=== PATIENT | female | born 1990 | race Hispanic/Latino ===

== ENCOUNTER 2023-05-20 16:04 | Outpatient (CLI) | payer BC, SELFPAY ==
[2023-05-20 16:46] VITALS: BP 138/76; PULSE 66
[2023-05-20 16:47] LABS: Basophils Percent Auto 0.2 % (0.2-1.2); Eosinophils Absolute Auto 0.1 K/mm3 (0-0.3); Eosinophils Percent Auto 0.6 % (0-4.4); Hematocrit 38.9 % (37.0-47.0); Hemoglobin 12.7 g/dL (12.0-15.0); Immature Granulocyte Absolute 0.02 K/mm3 (0.00-0.031); Immature Granulocyte Percent A 0.2 % (0-0.5); Lymphocytes Absolute Auto 2.86 K/mm3 (0.9-3.2); Lymphocytes Percent Auto 24.5 % (18.3-44.2); Mean Corpuscular HGB Conc 32.6 g/dl (32-36); Mean Corpuscular Hemoglobin 28.6 pg (26-34); Mean Corpuscular Volume 87.6 fl (80-100); Monocytes Absolute Auto 0.9 K/mm3 (0.1-0.6); Neutrophils Absolute Auto 7.8 K/mm3 (1.3-6.7); Neutrophils Percent Auto 66.5 % (45.5-73.1); Platelet Count Result 214 k/mm3 (150-375); Red Blood Count 4.44 M/mm3 (4.2-5.4); Red Cell Distribution Width 13.5 % (11.5-14.5); White Blood Count 11.7 K/mm3 (4.5-10.0)
[2023-05-20 16:52] LABS: Creatinine Urine 57.7 mg/dL; Total Protein Urine Random 131 mg/dL; Ur Ttl Prot Creatinine Ratio 2.27 mg/mg (0-0.20)
[2023-05-20 16:57] LABS: Alanine Aminotransferase 21 U/L (6-35); Albumin Level 3.4 g/dL (3.5-5.1); Alkaline Phosphatase 129 U/L (38-126); Anion Gap 8 mmol/L (8-16); Aspartate Amino Transferase 22 U/L (14-36); Bilirubin,Total 0.3 mg/dL (0.2-1.3); Blood Urea Nitrogen 14 mg/dL (7-17); Calcium 8.9 mg/dL (8.4-10.2); Carbon Dioxide 19 mmol/L (22-30); Chloride 107 mmol/L (98-107); Estimated Glomerular Filt Rate > 60; Glucose 77 mg/dL (65-110); Potassium 4.2 mmol/L (3.4-5.0); Sodium 134 mmol/L (137-145); Uric Acid 7.8 mg/dL (2.5-7.5)
[2023-05-20 17:01] VITALS: BP 150/73; PULSE 64
--- NOTE | 2023-05-20 17:14 | PC.NURSE ---
Dr. Corrales updated on pt labs and vital signs. Order received for 24 hour urine and bile acid level to be drawn when urine is completed. pt can be discharged once NST is reactive.
[2023-05-20 17:16] VITALS: BP 148/75; PULSE 63
[2023-05-20 17:20] LABS: Appearance Urine Cloudy (Clear); Bacteria Urine None Seen /hpf; Bilirubin Urine Negative (Negative); Blood Urine Negative (Negative); Color Urine Yellow (Yellow); Glucose Urine UA Negative (Negative); Ketones Urine Negative (Negative); Leukocyte Esterase Ur 1+ LEU/UL (NEGATIVE); Need Manual Microscopic Reviewed; Nitrate Urine Negative (Negative); Protein Urine 2+ mg/dL (Negative); RBC Urine 0-2 /hpf (0-2); Specific Grav Ur 1.014 (1.001-1.035); Squamous Epithelial Cell Urine Moderate /hpf (Few); Urobilinogen Urine 0.2 mg/dL (<2.0); WBC Urine 0-5 /hpf (0-3)
[2023-05-20 17:22] LABS: Add Urine Microscopic? YES
[2023-05-20 17:31] VITALS: BP 150/77; PULSE 63
[2023-05-20 18:02] VITALS: BP 138/76; PULSE 66
--- NOTE | 2023-05-20 18:14 | PC.NURSE ---
Dr. Corrales aware of pt blood pressures. okay with pt going home and completing 24 hour urine and returning.
== END 2023-05-20 18:08 | disposition home or self-care (01) ==
LOC: ANHOBOP 16:18 → ANHLDR 16:28
PROVIDERS: Visit Provider Obstetrics & Gynecology
DX: O13.9 Gestational [pregnancy-induced] hypertension without significant proteinuria, unspecified trimester (principal); Z3A.00 Weeks of gestation of pregnancy not specified
CPT/HCPCS: 36415; 59025; 80053; 81001; 82570; 84156; 84550; 85025; 87086; 99199

== ENCOUNTER 2023-05-21 18:01 | Outpatient (CLI) | payer BC, SELFPAY ==
[2023-05-21 18:34] LABS: Collection Time Urine 24 HOURS
[2023-05-21 18:42] LABS: Creatinine Urine 117.1 mg/dL; Total Protein Urine Random 67 mg/dL
[2023-05-21 20:56] LABS: Total Protein Urine 24 Hr 871 mg/24hr (28-141); Total Volume 24 Hour Urine 1300 ml
[2023-05-21 20:58] LABS: Creatinine Clearance Urine 136.5 ml/min (75-125); Patient Weight 268 Lbs
[2023-05-28 16:59] LABS: Chenodeoxycholic Acid 1.2 umol/L (< OR = 3.9); Cholic Acid 0.5 umol/L (< OR = 2.8); Deoxycholic Acid 0.5 umol/L (< OR = 2.3); Total Bile Acids 2.2 umol/L (< OR = 8.3)
== END 2023-05-21 18:02 | disposition home or self-care (01) ==
LOC: ANHOBOP 18:05
PROVIDERS: Visit Provider Obstetrics & Gynecology
DX: O13.9 Gestational [pregnancy-induced] hypertension without significant proteinuria, unspecified trimester (principal); Z3A.00 Weeks of gestation of pregnancy not specified
CPT/HCPCS: 36415; 81050; 82542; 82575; 84156

== ENCOUNTER 2023-05-22 13:59 | Inpatient (IN) | payer BC, SELFPAY ==
[2023-05-22] VITALS (25 sets, daily range): BP systolic 102–164; BP diastolic 65–111; PULSE 68–90; TEMP 36.8; BMI 44.0
[2023-05-22 14:36] LABS: Basophils Percent Auto 0.1 % (0.2-1.2); Eosinophils Absolute Auto 0.1 K/mm3 (0-0.3); Eosinophils Percent Auto 0.5 % (0-4.4); Hematocrit 38.2 % (37.0-47.0); Hemoglobin 12.5 g/dL (12.0-15.0); Immature Granulocyte Absolute 0.05 K/mm3 (0.00-0.031); Immature Granulocyte Percent A 0.4 % (0-0.5); Lymphocytes Absolute Auto 2.68 K/mm3 (0.9-3.2); Lymphocytes Percent Auto 23.4 % (18.3-44.2); Mean Corpuscular HGB Conc 32.7 g/dl (32-36); Mean Corpuscular Hemoglobin 28.4 pg (26-34); Mean Corpuscular Volume 86.8 fl (80-100); Mean Platelet Volume 12.1 fl (7.4-10.4); Monocytes Absolute Auto 0.9 K/mm3 (0.1-0.6); Monocytes Percent Auto 8.2 % (2.6-8.5); Neutrophils Absolute Auto 7.7 K/mm3 (1.3-6.7); Neutrophils Percent Auto 67.4 % (45.5-73.1); Platelet Count Result 195 k/mm3 (150-375); Red Cell Distribution Width 13.4 % (11.5-14.5); White Blood Count 11.5 K/mm3 (4.5-10.0)
[2023-05-22 14:41] LABS: Appearance Urine Clear (Clear); Bacteria Urine None Seen /hpf; Bilirubin Urine Negative (Negative); Blood Urine Negative (Negative); Color Urine Yellow (Yellow); Glucose Urine UA Negative (Negative); Ketones Urine Negative (Negative); Leukocyte Esterase Ur Trace LEU/UL (NEGATIVE); Nitrate Urine Negative (Negative); Non Pathogenic Casts 0-2; Protein Urine 2+ mg/dL (Negative); RBC Urine 0-2 /hpf (0-2); Specific Grav Ur 1.007 (1.001-1.035); Squamous Epithelial Cell Urine Few /hpf (Few); Urobilinogen Urine 0.2 mg/dL (<2.0); WBC Urine 0-5 /hpf (0-3); pH Urine 6.5 (5.0-9.0)
[2023-05-22 14:42] LABS: Creatinine Urine 24.3 mg/dL; Total Protein Urine Random 109 mg/dL; Ur Ttl Prot Creatinine Ratio 4.49 mg/mg (0-0.20)
[2023-05-22 14:44] LABS: Alanine Aminotransferase 19 U/L (6-35); Albumin Level 3.2 g/dL (3.5-5.1); Alkaline Phosphatase 122 U/L (38-126); Anion Gap 4 mmol/L (8-16); Aspartate Amino Transferase 19 U/L (14-36); Bilirubin,Total 0.2 mg/dL (0.2-1.3); Blood Urea Nitrogen 16 mg/dL (7-17); Calcium 9.2 mg/dL (8.4-10.2); Carbon Dioxide 19 mmol/L (22-30); Chloride 107 mmol/L (98-107); Estimated Glomerular Filt Rate > 60; Glucose 75 mg/dL (65-110); Potassium 3.9 mmol/L (3.4-5.0); Sodium 130 mmol/L (137-145); Uric Acid 7.5 mg/dL (2.5-7.5)
[2023-05-22 14:48] LABS: Add Urine Microscopic? YES
--- NOTE | 2023-05-22 15:55 | LDADM ---
This patient, Fabiola Jewell, was admitted to Labor/Delivery/Recovery 105 on 05/22/23 at 13:59. Plans for labor, pain management and were discussed with patient. Patient/family oriented to hospital policies and general routines including ID bracelet, bed and alarms, visiting hours, pain management, procedures, bathroom and other care routines, personal items, smoking policy, room service/diet and guest tray routines, security routines, and visiting hours. Patient/Family are encouraged to report perceived risks to care and to ask questions if they do not understand what they are told or what they should do. See OBIX for further documentation.
[2023-05-22 16:07] LABS: Basophils Percent Auto 0.2 % (0.2-1.2); Eosinophils Absolute Auto 0.1 K/mm3 (0-0.3); Eosinophils Percent Auto 0.4 % (0-4.4); Hematocrit 38.7 % (37.0-47.0); Hemoglobin 12.7 g/dL (12.0-15.0); Immature Granulocyte Absolute 0.04 K/mm3 (0.00-0.031); Immature Granulocyte Percent A 0.3 % (0-0.5); Lymphocytes Absolute Auto 2.84 K/mm3 (0.9-3.2); Lymphocytes Percent Auto 24.4 % (18.3-44.2); Mean Corpuscular HGB Conc 32.8 g/dl (32-36); Mean Corpuscular Hemoglobin 28.7 pg (26-34); Mean Corpuscular Volume 87.6 fl (80-100); Mean Platelet Volume 12.9 fl (7.4-10.4); Monocytes Absolute Auto 0.9 K/mm3 (0.1-0.6); Monocytes Percent Auto 7.7 % (2.6-8.5); Neutrophils Absolute Auto 7.8 K/mm3 (1.3-6.7); Platelet Count Result 194 k/mm3 (150-375); Red Blood Count 4.42 M/mm3 (4.2-5.4); Red Cell Distribution Width 13.6 % (11.5-14.5); White Blood Count 11.7 K/mm3 (4.5-10.0)
[2023-05-22] MEDS: DINOPROSTONE 10 MG VAG INSERT VAGINAL (16:28)
--- NOTE | 2023-05-22 16:45 | PM.IMHP ---
H&P: HPI History of Present Illness Date/Time: 05/22/23 16:45 Chief Complaint: Swelling Narrative: 32 y/o at 37 weeks here with swelling of face and feet. She had a 24 hour urine protein level which just returned at 871 mg / 24 hours. No headache or visual field change. Has been on ASA 81 mg daily. Just transferred care to [place] 2 weeks ago after moving here from [place]. GBS collected 2 days ago, results not available. Good movement. Ultrasound exam in office 2 days ago 6#12 oz, vertex, with normal ANGELA. Review of Systems Review of Systems: All systems reviewed & are unremarkable except as noted in HPI and below PMFSH Past Medical History Medical History Obesity affecting in third trimester Surgical History Surgical History History of D&C Hx of cholecystectomy Social History Social History Smoking status: Former smoker Tobacco type: cigarettes Second hand tobacco smoke exposure: No Lack of Transportation: No Lack of Food: Never True Current Housing: I Have Housing Concerned About Future Housing: No Difficulty Paying Gas/Electric Bills: No Difficulty Paying for Meds: No Currently Unemployed: No Education: Don't Know Difficulty w/ Childcare or Family Care: No Spiritual care concerns: No Meds Home Medications and Allergies Allergies Allergy/AdvReac Type Severity Reaction Status Date / Time No Known Allergies Allergy Verified 05/22/23 15:42 Vital Signs Vital Signs - 24 hr 05/22/23 14:31 05/22/23 14:46 05/22/23 15:11 Pulse Rate 70 73 74 Blood Pressure 159/92 H 164/90 H 154/87 H Oxygen Delivery 05/22/23 15:16 05/22/23 15:31 05/22/23 15:46 Pulse Rate 84 72 79 Blood Pressure 156/87 H 151/80 H 136/88 Oxygen Delivery 05/22/23 16:01 05/22/23 16:16 05/22/23 16:31 Pulse Rate 77 72 68 Blood Pressure 151/94 H 152/96 H 148/87 H Oxygen Delivery 05/22/23 15:52 Pulse Rate Blood Pressure Oxygen Delivery Room Air Exam Const: Orientation/consciousness: patient oriented x3 Other: Well-developed, well-nourished female in no acute distress. Neck: Thyroid: thyroid normal Lymphatic: no lymphadenopathy noted (in neck, axilla or inguinal nodes) Resp: Effort & Inspection: normal respiratory effort Auscultation: clear to auscultation bilaterally Cardio: Rate: regular rate Rhythm: regular rhythm Heart sounds: S1 normal heart sound present and S2 normal heart sound present GI: Other: ABD: Soft, nontender, gravid, nondistended. No guarding or rebound tenderness. No hepatosplenomegaly. FHR 140 reactive. TOCO: rare contractions. : General: Yes no CVA tenderness Other: Cervix /50/-3 per RN. Back/Spine/Pelvis: Back: no CVA tenderness Skin: General skin exam: normal color and no rashes or lesions noted Neuro: General: patient oriented x3 Extrem: Other: Extremities: nontender with 1+ pitting edema bilaterally. Psych: Mental Status: mental status grossly normal Affect: normal affect H&P: Results Labs Labs: Short CBC 05/22/23 05/22/23 Range/Units 14:21 16:01 WBC 11.5 H 11.7 H (4.5-10.0) K/mm3 Hgb 12.5 12.7 (12.0-15.0) g/dL Hct 38.2 38.7 (37.0-47.0) % Plt Count 195 194 (150-375) k/mm3 BMP 05/22/23 14:21 Sodium 130 L Potassium 3.9 Chloride 107 Carbon Dioxide 19 L BUN 16 Creatinine 0.60 L Glucose 75 Calcium 9.2 Liver Function 05/22/23 Range/Units 14:21 Total Bilirubin 0.2 (0.2-1.3) mg/dL AST 19 (14-36) U/L ALT 19 (6-35) U/L Alkaline Phosphatase 122 (38-126) U/L Albumin 3.2 L (3.5-5.1) g/dL Urine 05/22/23 Range/Units 14:21 Urine Color Yellow (Yellow) Urine Appearance Clear (Clear) Urine pH 6.5 (5.0-9.0) Ur Specific [place] 1.007 (1.001-1.035
[2023-05-22] MEDS: LACTATED RINGERS 1,000 ML 125 ML IV CONT (17:00)
[2023-05-22] MEDS: AMPICILLIN 2 GM/NS 100 ML 2 GM/100 ML BAG IVPB (17:00)
[2023-05-22] MEDS: NIFEdipine 10 MG CAPSULE PO (17:11)
[2023-05-22 18:47] LABS: HIV 1/2 Ab P24 Ag Result Negative (Negative)
[2023-05-22] MEDS: AMPICILLIN 1 GM/NS 50 ML 1 GM/50 ML BAG IVPB (22:30)
[2023-05-23] VITALS (227 sets, daily range): BP systolic 103–192; BP diastolic 53–175; PULSE 58–119; RESP 18; TEMP 36.6–37.2; O2SAT 94–100
[2023-05-23] MEDS: AMPICILLIN 1 GM/NS 50 ML 1 GM/50 ML BAG IVPB ×4 (02:30→15:18)
[2023-05-23] MEDS: LACTATED RINGERS 1,000 ML 125 ML IV CONT ×2 (05:06→10:37)
[2023-05-23] MEDS: fentaNYL CITRATE INJ (*CRX) 100 MCG/2 ML VIAL IV PUSH (05:11)
--- NOTE | 2023-05-23 06:07 | WPDANESEPP ---
Anes - Eval Pre Procedure Procedure: labor epidural Date/Time: 05/23/23 06:07 Surgeon: zoey Preop Diagnosis: pain during labor Pre Op Diagnosis: pih eval Patient Data Age: 32 Gender: F Height: 1.65 m Weight: 120 kg Last Vital Signs Temp 36.6 C 05/23/23 00:00 Pulse 81 05/23/23 05:56 BP 154/89 H 05/23/23 05:56 Pulse Ox 99 05/23/23 06:06 O2 Del Method Room Air 05/22/23 15:52 Allergies Allergy/AdvReac Type Severity Reaction Status Date / Time No Known Allergies Allergy Verified 05/22/23 17:20 Home Medications Medication Instructions Recorded Confirmed Type aspirin 81 mg tablet 1 mg PO DAILY 05/22/23 05/22/23 History Laboratory Tests 05/22/23 05/22/23 05/22/23 14:21 16:01 17:50 WBC 11.5 H K/mm3 11.7 H K/mm3 (4.5-10.0) (4.5-10.0) RBC 4.40 M/mm3 4.42 M/mm3 (4.2-5.4) (4.2-5.4) Hgb 12.5 g/dL 12.7 g/dL (12.0-15.0) (12.0-15.0) Hct 38.2 % 38.7 % (37.0-47.0) (37.0-47.0) MCV 86.8 fl 87.6 fl (80-100) (80-100) MCH 28.4 pg 28.7 pg (26-34) (26-34) MCHC 32.7 g/dl 32.8 g/dl (32-36) (32-36) RDW 13.4 % 13.6 % (11.5-14.5) (11.5-14.5) Plt Count 195 k/mm3 194 k/mm3 (150-375) (150-375) MPV 12.1 H fl 12.9 H fl (7.4-10.4) (7.4-10.4) Immature Gran % (Auto) 0.4 % 0.3 % (0-0.5) (0-0.5) Neut % (Auto) 67.4 % 67.0 % (45.5-73.1) (45.5-73.1) Lymph % (Auto) 23.4 % 24.4 % (18.3-44.2) (18.3-44.2) [place] % (Auto) 8.2 % 7.7 % (2.6-8.5) (2.6-8.5) Eos % (Auto) 0.5 % 0.4 % (0-4.4) (0-4.4) Baso % (Auto) 0.1 L % 0.2 % (0.2-1.2) (0.2-1.2) Lymph # (Auto) 2.68 K/mm3 2.84 K/mm3 (0.9-3.2) (0.9-3.2) [place] # (Auto) 0.9 H K/mm3 0.9 H K/mm3 (0.1-0.6) (0.1-0.6) Eos # (Auto) 0.1 K/mm3 0.1 K/mm3 (0-0.3) (0-0.3) Baso # (Auto) 0.0 K/mm3 0.0 K/mm3 (0.0-0.1) (0.0-0.1) Abs Immat Gran (auto) 0.05 H K/mm3 0.04 H K/mm3 (0.00-0.031) (0.00-0.031) Absolute Neuts (auto) 7.7 H K/mm3 7.8 H K/mm3 (1.3-6.7) (1.3-6.7) Absolute Nucleated RBC 0.0 K/mm3 0.0 K/mm3 (0.0-0.012) (0.0-0.012) Nucleated RBC % 0.0 % 0.0 % (0.0-0.2) (0.0-0.2) Sodium 130 L mmol/L (137-145) Potassium 3.9 mmol/L (3.4-5.0) Chloride 107 mmol/L (98-107) Carbon Dioxide 19 L mmol/L (22-30) Anion Gap 4 L mmol/L (8-16) BUN 16 mg/dL (7-17) Creatinine 0.60 L mg/dL (0.7-1.0) Estim Creat Clear Calc Not Reportable Estimated GFR > 60 (59 - ) Glucose 75 mg/dL (65-110) Uric Acid 7.5 mg/dL (2.5-7.5) Calcium 9.2 mg/dL (8.4-10.2) Total Bilirubin 0.2 mg/dL (0.2-1.3) AST 19 U/L (14-36) ALT 19 U/L (6-35) Alkaline Phosphatase 122 U/L (38-126) Total Protein 6.0 L g/dL (6.3-8.2) Albumin 3.2 L g/dL (3.5-5.1) Urine Color Yellow (Yellow) Urine Appearance Clear (Clear) Urine pH 6.5 (5.0-9.0) Ur Specific [place] 1.007 (1.001-1.035) Urine Protein 2+ H mg/dL (Negative) Urine Glucose (UA) Negative mg/dL (Negative) Urine Ketones Negative mg/dL (Negative) Ur Blood (Man) Negative (Negative) Urine Nitrate Negative (Negative) Urine Bilirubin Negative (Negative) Urine Urobilinogen 0.2 mg/dL (<2.0) Ur Leukocyte Esterase Trace H HAWK/UL (NEGATIVE) Urine RBC 0-2 /hpf (0-2) Urine WBC 0-5 /hpf (0-3) Ur Squamous Epith Cells Few /hpf (Few) Urine Bacteria None seen /hpf Urine Casts 0-2 U Random Total Protein 109 mg/dL Urine Creatinine 24.3 mg/dL Protein/Creat Ratio 2 4.49 H mg/mg (0-0.20) RPR Pendi
[2023-05-23] MEDS: OXYTOCIN 30 UNITS/NS 500 ML 30 UNITS/500 ML BAG 6 UNITS IV CONT (07:41)
[2023-05-23 09:15] LABS: Rapid Plasma Reagin Non-Reactive (NonReactive)
--- NOTE | 2023-05-23 12:01 | PM.OBPNLAB ---
Pain Control Date/time seen: 05/23/23 9549 Comments: Comfortable with epidural. Cervidil out. Oxytocin has not yet been started. Pelvic Exam Dilation (cm): 4 Effacement (%): 50 station: -2 Comments: AROM with clear fluid. IUPC placed. Contractions Contraction frequency: 4 Contraction pattern: Irregular Status status: Category l Assessment and Plan Comments: A: IUP at 37 weeks with preeclampsia; bp stable. S/p Cervidil. Plan: Oxytocin. Monitor bp.
--- NOTE | 2023-05-23 12:04 | PM.OBPNLAB ---
Pain Control Date/time seen: 05/23/23 12:04 Comments: Comfortable. Pelvic Exam Dilation (cm): 5 Effacement (%): 90 station: -1 Contractions Contraction frequency: 4 Contraction pattern: Regular Status status: Category l Assessment and Plan Pitocin rate (mU/min): 6 Comments: Continue labor.
[2023-05-23] MEDS: ONDANSETRON INJ 4 MG/2 ML VIAL IV PUSH (14:02)
--- NOTE | 2023-05-23 14:57 | PC.NURSE ---
1228 - Introductions were made and mother shared how she would like to feed her baby with exclusive . Encouraged mother to place infant [id number] until the first feeding if infant is stable and to wait on the weight to help stabilize, reduce stress, and improve latching by allowing time to explore parent's chest using instincts. Education was shared on how to protect her milk supply with latching infant and/or using hand expression to remove milk if infant doesn't latch in the first hour, then finger feed colostrum to the infant to preserve breast focus. Demonstration given on how to hand express using tool. We discussed mothers questions, concerns and typical late behaviors. Resources provided with educational trifold for bonding and feeding infant. Mother voiced understanding of information, planning to meet again on the PP floor after delivery and to call if there is a request for assistance.
[2023-05-23] MEDS: miSOPROStol 200 MCG TABLET 1000 MCG RECTAL (16:49)
--- NOTE | 2023-05-23 16:57 | PM.OBPRVD ---
OB - Delivery Note Procedure Delivery date: 05/23/23 Procedure: Induction of labor with Induction method: Per Cervidil Protocol Delivery augmentation: Rupture of Membranes and Pitocin Delivery monitor: External FHT, External Uterine and Internal Uterine Route of delivery: Laceration Description: Periurethral and Perineal - 2nd Degree Delivery repair: vicryl (3-0) Specimen: Yes (cord blood, placenta) Quantitative Blood Loss (ml): 570 Anesthesia type: Epidural Disposition: PACU Complications: None Narrative: 32 y/o at 37 1/7 weeks gestation who presented to the hospital for induction of labor because of preeclampsia. Cervidil was placed overnight. She received ampicillin for GBS unknown status. The following morning the Cervidil was withdrawn and oxytocin was administered intravenously. Amniotomy was performed with return of clear fluid. She received an epidural for pain control. Her labor progressed and her cervix dilated completely. She pushed with good effort and delivered the infant's head to the perineum, followed by the body. The nose and mouth were bulb suctioned. After a delay, the cord was clamped and cut. The was handed off the field. Cord blood was collected. The placenta delivered spontaneously and was grossly normal in appearance. The usual 3 vessel cord was noted. A second degree midline perineal laceration was sustained. This was reapproximated using 3 0 Vicryl in the usual layered fashion. A right-sided periurethral laceration was reapproximated with a single figure of eight suture of the same material. Uterine atony was addressed with uterine massage, IV oxytocin, and 1000 mcg Cytotec [place]. Excellent hemostasis resulted as did excellent reapproximation of the normal anatomy. Needle and instrument counts were correct. The patient was taken to recovery room in stable condition. The went to the nursery in stable condition. I was present and scrubbed for the entire delivery. Baby Date of : 05/23/23 Time of : 16:30 Weeks of gestation at delivery: 37 gender: Female Weight (pounds): 6 Weight (ounces): 3 presentation: vertex position: Left Occiput Anterior Placenta delivery description: Spontaneous and Normal Configuration Cord Vessel Description: 3 Vessels and Delayed Cord Clamping score one minute: 9 score five minutes: 9
--- NOTE | 2023-05-23 17:02 | PM.OBDSVD ---
DS: Admitting Diagnosis Discharge Date 05/25/23 Admitting Diagnosis IUP at 37 weeks Preeclampsia DS: Discharge Diagnosis Discharge Diagnosis (1) Term : Code(s): Z34.90 - Encounter for supervision of normal , unspecified, unspecified trimester Status: Acute (2) Preeclampsia: Qualifiers: Trimester: third trimester Qualified Code(s): O14.93 - Unspecified pre-eclampsia, third trimester Code(s): O14.90 - Unspecified pre-eclampsia, unspecified trimester Status: Acute OB - DS: Summary OB Procedures : PIH Mgmt OB Procedures Intrapartum: Spontaneous Vag Delivery and GBS prophylaxis OB Procedures: : None Time Spent with Patient Time attestation: Total time spent providing and/or coordinating discharge services: DS: Data Data Completed and Pending Labs on day of discharge: Labs from last 24 hours 05/22/23 05/22/23 17:50 16:01 RPR Non-reactive HIV 1&2 Ab/P24 Ag 4thGn Negative Discharge Plan Discharge Attending physician on discharge: Maximilian Corrales Discharging Clinician: Maximilian Corrales Patient Disposition: Home, Self-Care Activity: pelvic rest Diet: regular Discharge Instructions: Call or return if temperature above 100.4? F, increased abdominal pain, increased vaginal bleeding or any new problems. Stand Alone Forms: General Discharge Information Follow-up/Referrals: Maximilian Corrales MD [Physician] - 6 Weeks Discharge Medications: New ibuprofen 600 mg tablet 600 mg PO Q6H PRN (Reason: cramps) Qty: 30 0RF ferrous sulfate 325 mg (65 mg iron) tablet 325 mg PO DAILY Qty: 30 0RF hydrocodone-acetaminophen 5-325 mg tablet 1 tablet PO Q4H PRN (Reason: pain) Qty: 20 0RF Discontinued Adult Low Dose Aspirin 81 mg Tablet 1 mg PO DAILY Date of admission: 05/22/23 13:59 Primary Care Provider: PHYSICIAN,ENVIRONMENTAL PROFESSIONAL Admitting Provider: Maximilian Corrales Attending physician on admission: Maximilian Corrales Condition: Stable
[2023-05-23] MEDS: OXYTOCIN 30 UNITS/NS 500 ML 30 UNITS/500 ML BAG 125 UNITS IV CONT ×2 (17:07→21:45)
[2023-05-23] MEDS: CARBOPROST TROMETHAMINE 250 MCG/ML AMPUL IM (17:19)
[2023-05-23 18:04] LABS: Hematocrit 34.8 % (37.0-47.0); Hemoglobin 11.4 g/dL (12.0-15.0)
[2023-05-23] MEDS: LACTATED RINGERS 1,000 ML 250 ML IV CONT (18:08)
[2023-05-23 18:17] LABS: Alanine Aminotransferase 17 U/L (6-35); Albumin Level 1.9 g/dL (3.5-5.1); Alkaline Phosphatase 89 U/L (38-126); Anion Gap 1 mmol/L (8-16); Aspartate Amino Transferase 20 U/L (14-36); Bilirubin,Total 0.4 mg/dL (0.2-1.3); Blood Urea Nitrogen 8 mg/dL (7-17); Calcium 6.1 mg/dL (8.4-10.2); Carbon Dioxide 17 mmol/L (22-30); Chloride 116 mmol/L (98-107); Estimated CRCL calculation 176 ml/min; Estimated Glomerular Filt Rate > 60; Glucose 65 mg/dL (65-110); Sodium 134 mmol/L (137-145)
[2023-05-23 18:22] LABS: Partial Thromboplastin Time 24.7 SECONDS (22.3-36.8); Prothrombin Time 13.4 Seconds (11.1-14.7)
[2023-05-23 18:23] LABS: Fibrinogen 353 mg/dl (215-510)
[2023-05-23 18:24] LABS: D Dimer 1.34 ug/mL (<0.48)
[2023-05-23] MEDS: IBUPROFEN 600 MG TABLET PO (21:31)
[2023-05-23] MEDS: LOPERAMIDE HCL 2 MG CAPSULE 4 MG PO (21:44)
--- NOTE | 2023-05-23 22:00 | PC.NURSE ---
Patient transferred to post room # 285 via( W/C ). Support person present. Oriented to unit, room, information board, rooming in, admission packet and security measures. Patient verbalizes understanding.
--- NOTE | 2023-05-23 23:30 | PC.NURSE ---
Pt had a hemorrhage. She came to the floor with the BRIE device in place. Labor Rn connected pt to the proper setting of suction. MD at bedside at 2330. MD disconnected suction, but left the device in place. . returned at 0015 to take Brie device out. Pt. tolerated procedure well.
--- NOTE | 2023-05-24 00:33 | PM.OBPNVD ---
OB - PN: Subj Subjective Date/time seen: 05/24/23 00:33 Narrative: Has some cramping and some back pain. OB - PN: Obj Data Labs 05/23/23 18:00 05/23/23 17:57 Labs: Laboratory Results - last 24 hr 05/22/23 05/23/23 05/23/23 16:01 17:57 18:00 Hgb 11.4 L Hct 34.8 L PT 13.4 INR 1.0 APTT 24.7 Fibrinogen 353 D-Dimer 1.34 H Sodium 134 L Potassium 3.0 L Chloride 116 H Carbon Dioxide 17 L Anion Gap 1 L BUN 8 D Creatinine 0.50 L Estim Creat Clear Calc 176 Estimated GFR > 60 Glucose 65 Calcium 6.1 L Total Bilirubin 0.4 AST 20 ALT 17 Alkaline Phosphatase 89 Total Protein 4.0 L Albumin 1.9 L RPR Non-reactive OB - PN A/P Plan Comments: A: PPD#1, doing well. hemorrhage, stable. Preeclampsia, clinically stable without antihypertensives. Magnesium sulfate was not started in the period due to uterine atony / hemorrhage. P: Routine care. Exam Psych: Other: AVSS ABD soft, nontender, fundus firm EXT nontender The Brie tubing was disconnected and the vaginal balloon deflated. After 30 minutes, hemostasis was still excellent and the uterine fundus was still firm and below the umbilicus. The Brie system was removed from the vagina and discarded.
[2023-05-24] MEDS: IBUPROFEN 600 MG TABLET PO ×3 (02:20→17:50)
[2023-05-24] MEDS: HYDROcodone/acetaminophen (*CRX) 5-325 MG TABLET 1 TAB PO ×3 (02:20→22:24)
[2023-05-24 05:56] VITALS: BP 98/57; PULSE 62; RESP 18; TEMP 36.7; O2SAT 98
[2023-05-24 06:17] LABS: Hematocrit 27.5 % (37.0-47.0)
[2023-05-24 07:45] VITALS: BP 128/85; PULSE 74; RESP 16; TEMP 37.1; O2SAT 97
--- NOTE | 2023-05-24 08:00 | PC.NURSE ---
PT introductions made and plan of care discussed per post , pain management, breast feeding, daily care activities, PIH symptoms, signs of low iron and pending discharge to home Friday 05/25. PT sole recipient of such instructions and no barriers to learning identified at this time. PT received such instructions per one to one discussion, mom baby care guide and demonstrations this shift. PT verbalized understanding of such care.
--- NOTE | 2023-05-24 08:25 | WPDANLDPN2 ---
Anes-Prog Note L&D Date/Time: 05/24/23 08:25 Neuro status: Neuro function grossly intact. Vital Signs: Last Vital Signs Temp 36.7 C 05/24/23 05:56 Pulse 62 05/24/23 05:56 Resp 18 05/24/23 05:56 BP 98/57 L 05/24/23 05:56 Pulse Ox 98 05/24/23 05:56 O2 Del Method Room Air 05/23/23 23:23 Pain score (VAS): 0 I/O: Intake & Output 05/23/23 05/24/23 05/24/23 23:59 07:59 15:59 Intake Total 1000 725 Output Total 1608 250 Balance -608 475 Patient feedback: Patient satisfied with anesthetic care.
[2023-05-24] MEDS: ACETAMINOPHEN 325 MG TABLET 650 MG PO (11:22)
[2023-05-24] MEDS: MULTIVIT/MIN/PREN/FOL AC/IRON TABLET 1 TAB PO (11:23)
[2023-05-24] MEDS: DOCUSATE SODIUM 100 MG CAPSULE PO ×2 (11:24→17:50)
[2023-05-24] MEDS: POLYSACCHARIDE IRON COMPLEX 150 MG CAPSULE PO ×2 (11:26→17:51)
[2023-05-24] MEDS: LANOLIN (LANSINOH) 7.5 GM CREAM 1 APPLIC TOPICAL (11:29)
[2023-05-24 11:30] VITALS: PULSE 74; RESP 16; O2SAT 97
[2023-05-24] MEDS: LOPERAMIDE HCL 2 MG CAPSULE (12:00)
[2023-05-24 12:10] VITALS: BP 120/81; PULSE 73; RESP 18; TEMP 37; O2SAT 98
--- NOTE | 2023-05-24 14:20 | PC.NURSE ---
[id number] Purposefully rounded to assess needs. Primary RN initiated the feeding plan with mother prior to meeting mother this morning. Mother states she fed the bottle at 0935, then breastfed at 1045 for 10 minutes, then breastfed for 15 minutes on the second breast. Mother states there was no pain with and she visualized rocking jaw motion with swallowing of the jaw dropping. Mother states she has a lot of colostrum. Mother voiced understanding of calling for assistance for a assessment, difficulty waking infant to breastfeed or pain with the latch. RN's name written on the communication board.
--- NOTE | 2023-05-24 15:54 | PC.NURSE ---
[id number] Purposefully rounded to assess for needs. Mother verbalizes she is able to independently latch with appropriate positioning/alignment. She denies any nipple discomfort and is responsively . Infant is currently meeting outcomes for weight, output, jaundice and feeding frequencies of 8-12 times in 24 hours. Mother demonstrated her efforts with infant latched to the right breast using laid-back cradle positioning, then detached. Reviewed positioning and ear, shoulder, hip alignment, supporting the breast to facilitate a deep latch, asymmetrical latch (off-center), leading with the chin with a big, open, wide gape and body close to mother. Infant latched optimally to the left breast in football position. Education given to mother of how to visualize suck/swallow ratios and listen for drinking at the breast. Infant was able to maintain latch without discomfort to mother. Mother is encouraged to call for assistance if her infant doesn?t latch, there is discomfort with latching or she doesn't observe swallowing. Mother voiced understanding of information shared and the mom reminded of the mom/baby guide for an additional resource.
--- NOTE | 2023-05-24 16:04 | PC.NURSE ---
Addendum entered by Meka Chacko RN 05/24/23 16:14: Pumped colostrum is stored in patient room in an oral syringe. Demonstrated to parent how to allow to suck on a clean finger with pad of finger to the roof of 's mouth, then reward sucking efforts with small amounts of colostrum syringe fed to infant in the side of the cheek. Parents were encouraged to call for assistance with feeding infant or if they have any concerns or questions. Plan of care is the feeding plan increasing volume with age and needs protecting the milk supply and attempting to latch . Original Note: [id number] Called for a consult. Mother is attempting to latch , however, is sleepy in the position. Mother led conversation with her experience with feeding baby so far. Mother works well with her with encouragement. Encouraged understanding the benefits of skin to skin. Reviewed working with infant, supporting breast and how to protect the nipples with an optimal deep latch, good positioning, and good hand washing. Once infant was placed upright [id number] demonstrated feeding cues. Reviewed positioning and alignment, supporting breast, off-centered (asymmetrical latch) and leading with the chin with big, open, wide gape. Infant was brought to the breast in football, then cross cradle to attempt to achieve an optimal latch. Infant is unable to latch to mother's breast effectively at this time. Infant demonstrates great effort, yet on closer evaluation the nipple is seen in the corner of the infants mouth. There is a mismatch of mouth to nipple at this time. Mother was educated on what to look for to know if infant is latched well, swallowing transferring milk. Nipple care reviewed with optimal latch, good positioning and using clean hands when feeding her infant and touching her breast. Demonstrated to mother paced bottle feeding to encourage breast focus for the future. Breast pump was in the room provided earlier due to ineffective per report. Instructions given on cleaning, care, usage, that there should be no pain, pumping schedule for milk production, collection, and storage of human milk. Patient was assessed for correct placement, flange size (24mm), to pump for comfort and nipple stretching/stimulation for adequate milk production every 3 hours (8 times in 24 hours) 1-2 times at night at the minimum and mother was encouraged to pump more often if she desired as it may encouraged her milk supply after a large delivery blood loss. Resources used to facilitate learning were used from the visual handout, tool, mom and baby guide for outpatient service and community resources. Mother voiced understanding of the education shared, to call for assistance if the does not latch or if there is discomfort with . Reported to the primary RN.
--- NOTE | 2023-05-24 16:11 | PM.OBPNVD ---
OB - PN: Subj Subjective Date/time seen: 05/24/23 16:11 Narrative: Pain OK. OB - PN: Obj Data Labs 05/24/23 05:48 05/23/23 17:57 Labs: Laboratory Results - last 24 hr 05/23/23 05/23/23 05/24/23 17:57 18:00 05:48 Hgb 11.4 L 9.0 L Hct 34.8 L 27.5 L PT 13.4 INR 1.0 APTT 24.7 Fibrinogen 353 D-Dimer 1.34 H Sodium 134 L Potassium 3.0 L Chloride 116 H Carbon Dioxide 17 L Anion Gap 1 L BUN 8 D Creatinine 0.50 L Estim Creat Clear Calc 176 Estimated GFR > 60 Glucose 65 Calcium 6.1 L Total Bilirubin 0.4 AST 20 ALT 17 Alkaline Phosphatase 89 Total Protein 4.0 L Albumin 1.9 L OB - PN A/P Plan Comments: A: PPD#1, doing well. Preeclampsia, resolving. PPH, resolved. P: Routine care. Exam Psych: Other: AVSS ABD soft, nontender, fundus firm EXT nontender
[2023-05-24 20:00] VITALS: BP 115/73; PULSE 72; RESP 18; TEMP 36.7; O2SAT 98
[2023-05-25] MEDS: IBUPROFEN 600 MG TABLET PO (04:41)
[2023-05-25 08:30] VITALS: BP 128/72; PULSE 63; RESP 16; TEMP 36.8; O2SAT 100
[2023-05-25] MEDS: DOCUSATE SODIUM 100 MG CAPSULE PO (08:30)
[2023-05-25] MEDS: HYDROcodone/acetaminophen (*CRX) 5-325 MG TABLET 1 TAB PO (08:30)
[2023-05-25] MEDS: POLYSACCHARIDE IRON COMPLEX 150 MG CAPSULE PO (08:30)
[2023-05-25] MEDS: MULTIVIT/MIN/PREN/FOL AC/IRON TABLET 1 TAB PO (08:30)
--- NOTE | 2023-05-25 09:23 | PM.OBPNVD ---
OB - PN: Subj Subjective Date/time seen: 05/25/23 09:23 Narrative: Pain OK. Would like to go home. OB - PN: Obj Data Labs 05/24/23 05:48 05/23/23 17:57 OB - PN A/P Plan Comments: A: PPD#2, doing well. Hemorrhage, resolved. Preeclampsia, resolving. P: Home to f/u 6 weeks. Exam Psych: Other: AVSS ABD soft, nontender, fundus firm EXT nontender
[2023-05-25] MEDS: WITCH HAZEL 40 PADS 1 PAD TOPICAL (09:30)
[2023-05-27 09:34] VITALS: BP 131/93; PULSE 92; RESP 18; TEMP 37; O2SAT 92
== END 2023-05-25 13:43 | disposition home or self-care (01) | DRG 807 ==
LOC: ANHOBOP 14:06 → ANHLDR 14:06 → ANHOBOP 15:22 → ANHLDR 15:22 → ANHOB2 05-23 22:08
PROVIDERS: Admitting Provider Obstetrics & Gynecology; Visit Provider Obstetrics & Gynecology
DX: O14.94 Unspecified pre-eclampsia, complicating childbirth (principal); Z37.0 Single live birth; Z3A.37 37 weeks gestation of pregnancy; O70.1 Second degree perineal laceration during delivery; O71.82 Other specified trauma to perineum and vulva; O99.214 Obesity complicating childbirth; E66.9 Obesity, unspecified; O72.1 Other immediate postpartum hemorrhage
CPT/HCPCS: 36415; 80053; 81001; 82570; 84156; 84550; 85014; 85018; 85025; 85380; 85384; 85610; 85730; 86592; 86703; 86850; 86900; 86901; 87086; 88307; A9270; G0432; J0290; J2405; J2590; J2795; J3010; J7120

== ENCOUNTER 2023-11-16 16:39 | Emergency (ER) | payer BC, SELFPAY ==
--- NOTE | ~2023-11-16 | XR_ITS ---
PA, oblique, and lateral views of the right thumb CLINICAL HISTORY: Injury FINDINGS: No acute fracture or dislocation seen. Joint spaces are preserved. Soft tissues are unremar kable. IMPRESSION: No acute abnormality evident. Reviewed, dictated and finalized at location . [employer]
[2023-11-16 16:46] VITALS: BP 138/87; PULSE 90; RESP 20; TEMP 36.3; O2SAT 100
--- NOTE | 2023-11-16 16:55 | ED.UPPEXIN ---
HPI - Extremity Injury (Upper) General Chief Complaint: Extremity Injury, Upper Stated Complaint: rt thumb inj Time Seen by Provider: 11/16/23 16:51 Source: patient and RN notes reviewed Mode of arrival: ambulatory Limitations: no limitations History of Present Illness HPI narrative: Patient presents today complaining of a right thumb injury. Approximately 5-10 minutes prior to arrival, patient slammed her right thumb in the trunk of her car. Small laceration to the finger. Denies numbness or tingling. Currently rates her pain 4/10. She is up-to-date on her tetanus vaccine. Related Data Home Medications Medication Instructions Recorded Confirmed sertraline 100 mg tablet 100 mg PO DAILY 11/16/23 11/16/23 Allergies Allergy/AdvReac Type Severity Reaction Status Date / Time No Known Allergies Allergy Verified 11/16/23 16:55 Review of Systems Review of Systems: CONSTITUTIONAL: Denies body aches, fever, chills, or sweats. EYES: Denies visual changes, redness, or discharge. ENT: Denies rhinorrhea, congestion, sore throat, or otalgia. CARDIOVASCULAR: Denies chest pain, palpitations, or edema. RESPIRATORY: Denies cough or dyspnea. GASTROINTESTINAL: Denies abdominal pain, nausea, vomiting, or diarrhea. GENITOURINARY: Denies dysuria or hematuria. SKIN: Denies rash, itching MUSCULOSKELETAL: Denies back pain, or myalgia.+ right thumb injury NEUROLOGIC: Denies headache, numbness, tingling, or weakness. PSYCH: Denies depression or anxiety. COUNTS INCLUDE 234 BEDS AT THE [facility] Past Medical History Medical History IUP (intrauterine ), incidental Obesity affecting in third trimester Surgical History Surgical History History of D&C Hx of cholecystectomy Social History Social History Smoking status: Former smoker Tobacco type: cigarettes Second hand tobacco smoke exposure: No Lack of Transportation: No Lack of Food: Never True Current Housing: I Have Housing Concerned About Future Housing: No Difficulty Paying Gas/Electric Bills: No Difficulty Paying for Meds: No Currently Unemployed: No Education: Don't Know Difficulty w/ Childcare or Family Care: No Spiritual care concerns: No Comments At time of signature, I have reviewed and agree with nursing past medical, surgical, social and family history unless otherwise noted. Please see nursing chart for further information. There is no relevant family history pertinent to the presenting complaint Exam Narrative: GENERAL: Well-appearing, well-nourished, and in no acute distress. HEAD: Normocephalic, atraumatic. EYES: EOMI. No redness or drainage. Conjunctivae normal. ENT: Mucous membranes pink and moist. NECK: Normal AROM. CHEST: No respiratory distress. EXTREMITIES: Tenderness to the distal phalax and IPJ. No edema or ecchymosis noted. 1cm L shaped superficial flap laceration adjacent to the fingernail. Nail unaffected. Distal sensation intact. Capillary refill normal. Full range of motion of the finger against resistance. No tenderness to the proximal phalanx. SKIN: Warm, dry, no rash. Capillary refill normal. Normal skin turgor. NEURO: No focal deficits. Alert and oriented x3. Gait steady. PSYCH: Normal affect. No signs of depression or anxiety. Course Course Level of Care: Express Care Visit Vital Signs Vital signs: Vital Signs Temperature 97.4 F L 11/16/23 16:46 Pulse Rate 90 11/16/23 16:46 Respiratory Rate 20 11/16/23 16:46 Blood Pressure 138/87 11/16/23 16:46 Pulse Oximetry 100 11/16/23 16:46 Oxygen Delivery Room Air 11/16/23 16:46 Temperature 97.4 F L 11/16/23 16:46 Pulse Rate 90 11/16/23 16:46 Respiratory Rate 20 11/16/23 16:46 Blood Pressure 138/87 11/16/23 16:46 Pulse Oximetry 100 11/16/23 16
== END 2023-11-16 17:21 | disposition home or self-care (01) ==
PROVIDERS: Emergency Provider Nurse Practitioner
DX: S61.011A Laceration without foreign body of right thumb without damage to nail, initial encounter (principal); X58.XXXA Exposure to other specified factors, initial encounter; S60.011A Contusion of right thumb without damage to nail, initial encounter; Z87.891 Personal history of nicotine dependence
CPT/HCPCS: 73140; 99213; G0463

== ENCOUNTER 2024-05-22 10:28 | Emergency (ER) | payer BC, SELFPAY ==
--- NOTE | ~2024-05-22 | XR_ITS ---
EXAMINATION: XR tibia fibula LT 2V DATE: 05/22/2024 11:09 INDICATION: Left lower leg injury and pain. TECHNIQUE: 2 views of left tibia and fibula were obtained. COMPARISON: None. FINDINGS: Bone alignment is normal. No fracture. Joint spaces are normal. IMPRESSION: 1. No fracture. Reviewed, dictated and finalized at location A. IMPRESSION: 1. No fracture.
--- NOTE | 2024-05-22 10:33 | ED.LOWEXIN ---
HPI - Extremity Injury (Lower) General Chief Complaint: Extremity Problem,Nontraumatic Stated Complaint: LT ho injury Time Seen by Provider: 05/22/24 10:32 Source: patient Mode of arrival: ambulatory Limitations: no limitations History of Present Illness HPI Narrative: Fabiola is a 33-year-old female presents today with complaints of left ho pain. She states about 2 weeks ago that she picked her child up out of a play pen and hit her left ho on the play pen. She has been able to bear weight on the affected leg without difficulty however certain movements make the pain worse. She states there is no specific movement that makes the pain worse. She has been taking Tylenol and ibuprofen for the pain. She ultimately presents today due to complaints of persistent pain and is worried she has a fracture. Related Data Home Medications Medication Instructions Recorded Confirmed sertraline 100 mg tablet 100 mg PO DAILY 11/16/23 05/22/24 Allergies Allergy/AdvReac Type Severity Reaction Status Date / Time No Known Allergies Allergy Verified 05/22/24 10:46 Review of Systems Review of Systems: Pertinent positives per HPI. Patient denies any fever, chills, rash, headache, visual changes, dizziness, cough, runny nose, sore throat, shortness of breath, chest pain, palpitations, nausea, vomiting, diarrhea, constipation, abdominal pain, or any urinary issues. [facility] Past Medical History Medical History IUP (intrauterine ), incidental Obesity affecting in third trimester Surgical History Surgical History History of D&C Hx of cholecystectomy Social History Social History Smoking status: Former smoker Tobacco type: cigarettes Second hand tobacco smoke exposure: No Lack of Transportation: No Lack of Food: Never True Current Housing: I Have Housing Concerned About Future Housing: No Difficulty Paying Gas/Electric Bills: No Difficulty Paying for Meds: No Currently Unemployed: No Education: Don't Know Difficulty w/ Childcare or Family Care: No Spiritual care concerns: No Comments At the time of my signature, I reviewed and agree with the nursing past medical, surgical, social, and family history. There is no relevant family history pertinent to the patient complaint. Exam Narrative: General: Well-developed, well nourished, in no apparent distress Integumentary: Skin warm, dry, and intact without lesions. Musculoskeletal: No deformity, left anterior ho tender to palpation, grossly normal range of motion, muscle strength strong and equal, peripheral pulse strong, no edema, no cyanosis, normal gait and station. Course Course Emergency Course: Portions of this record may have been created with voice recognition software. Level of Care: Express Care Visit Vital Signs Vital signs: Vital Signs Temperature 36.6 C 05/22/24 10:46 Pulse Rate 70 05/22/24 10:46 Respiratory Rate 18 05/22/24 10:46 Blood Pressure 121/71 05/22/24 10:46 Pulse Oximetry 99 05/22/24 10:46 Oxygen Delivery Room Air 05/22/24 10:46 Temperature 36.6 C 05/22/24 10:46 Pulse Rate 70 05/22/24 10:46 Respiratory Rate 18 05/22/24 10:46 Blood Pressure 121/71 05/22/24 10:46 Pulse Oximetry 99 05/22/24 10:46 Oxygen Delivery Room Air 05/22/24 10:46 Vital signs reviewed MDM - Extremity Injury (Lower) MDM Narrative Medical decision making narrative: At the time of visit patient is resting comfortably on the exam table. Patient appears to be nontoxic. Diagnostics: X-rays negative for any sign of fracture or malalignment of the left tib fib Plan: I suspect patient has a left lower leg contusion. Supportive measures were discussed with the patient and they voiced understanding disc
[2024-05-22 10:46] VITALS: BP 121/71; PULSE 70; RESP 18; TEMP 36.6; O2SAT 99
== END 2024-05-22 11:30 | disposition home or self-care (01) ==
PROVIDERS: Emergency Provider Nurse Practitioner Family
DX: S80.12XA Contusion of left lower leg, initial encounter (principal); W22.8XXA Striking against or struck by other objects, initial encounter; Z87.891 Personal history of nicotine dependence
CPT/HCPCS: 73590; 99213; G0463